=== PATIENT | male | born 1995 | race Caucasian/White ===

== ENCOUNTER 2018-09-04 19:51 | Inpatient (IN) | payer OTHER ==
[~2018-09-04] VITALS: Ht 182.9 cm; Wt 75.5 kg
[2018-09-04] MEDS ORDERED: IBUP200C25 PO (20:09)
[2018-09-04 20:51] LABS: HEMATOCRIT 41.6 % (42.0-52.0); HEMOGLOBIN 14.5 g/dl (13.5-17.5); MEAN CORPUSCULAR HEMOGLOBIN 31.2 pg (27.0-33.0); MEAN CORPUSCULAR HGB CONC 34.9 g/dl (32.0-36.5); MEAN CORPUSCULAR VOLUME 89.5 fl (80.0-96.0); PLATELET COUNT, AUTOMATED 209 10^3/uL (150-450); RED BLOOD COUNT 4.65 10^6/uL (4.30-6.10); WHITE BLOOD COUNT 6.7 10^3/uL (4.0-10.0)
[2018-09-04 21:16] LABS: ACETAMINOPHEN LEVEL < 2.0 UG/ML (10.0-30.0); ALBUMIN 3.9 GM/DL (3.2-5.2); ALT/SGPT 13 U/L (12-78); BILIRUBIN,DIRECT < 0.1 MG/DL (0.0-0.2); BILIRUBIN,TOTAL 0.2 MG/DL (0.2-1.0); BLOOD UREA NITROGEN 12 MG/DL (7-18); CALCIUM LEVEL 8.3 MG/DL (8.5-10.1); CARBON DIOXIDE LEVEL 30 MEQ/L (21-32); CHLORIDE LEVEL 107 MEQ/L (98-107); ETHYL ALCOHOL (ETHANOL) < 0.003 % (0.000-0.010); GLUCOSE, FASTING 85 MG/DL (70-100); POTASSIUM SERUM 4.1 MEQ/L (3.5-5.1); SALICYLATE LEVEL < 1.7 MG/DL (5.0-30.0); SODIUM LEVEL 143 MEQ/L (136-145); TOTAL PROTEIN 6.9 GM/DL (6.4-8.2)
[2018-09-04 21:45] LABS: AMPHETAMINES LEVEL URINE NEGATIVE (NEGATIVE); BARBITURATES URINE NEGATIVE (NEGATIVE); BENZODIAZEPINES URINE NEGATIVE (NEGATIVE); CANNABINOIDS URINE POSITIVE (NEGATIVE); COCAINE METABOLITE URINE NEGATIVE (NEGATIVE); METHADONE URINE NEGATIVE (NEGATIVE); OPIATES URINE NEGATIVE (NEGATIVE); PHENCYCLIDINE URINE NEGATIVE (NEGATIVE)
[2018-09-04] MEDS ORDERED: LORazepam 2 MG TAB PO PRN (22:15)
[2018-09-04] MEDS ORDERED: MOM 30ML SUSPENSION UDC PO PRN (22:15)
[2018-09-04] MEDS ORDERED: MAALOX 30 ML SUSP *UDC PO PRN (22:15)
[2018-09-04] MEDS: THIAMINE 100 MG TAB PO SCH (22:20)
[2018-09-04] MEDS ORDERED: IBUPOTC PO (22:58)
[2018-09-05 01:40] VITALS: BP 124/77
[2018-09-05] MEDS ORDERED: FOLIC ACID 1 MG TAB PO SCH (09:00)
[2018-09-05] MEDS: MULTIVITAMINS/MINERALS THERAP 1 TAB PO SCH (09:59)
[2018-09-05] MEDS: THIAMINE 100 MG TAB PO SCH (09:59)
--- NOTE | 2018-09-05 10:20 | HPEPDOC ---
[facility] Medical History & Physical Date of Admission Sep 05, 2018 History and Physical PCP: EVAN Mcdonald ATTENDING: Dr. Genaro Nick HPI: 22 yo M admitted to [facility] for unspecified depressive disorder, being medically examined today. No acute medical complaints today. Denies any fevers, chills, weakness, fatigue, GOMEZ, CP, SOB, cough, palpitations, abdominal pain, N/V/D or changes in bowel or bladder habits. PMHx: Anxiety Depression History of substance use History of SI/SA. Patient states he attempted hanging March 2018. Patient did not report or seek medical treatment. Occasional headache PSHX: Abdominal surgery at 2 weeks old SOCHX: [facility] [place] Marital Status: Single Kids: None Employment: Active duty Tobacco use: Denies ETOH: Reported drinking daily prior to listing in the [employer]. Illicit Drugs: History of marijuana with daily use prior to enlisting in the left [employer], states he has not used since he's been in the [employer]. IV Drug Use: Denies Tattoos done unprofessionally: Denies FAMHX: Mother: Alive, well Father: Alive, Crohn's disease Siblings: Half-brother and half-sister Alive, well Children: None Unexpected deaths due to medical reasons: None. ROS: As noted in HPI, otherwise 11pt ROS of systems reviewed and unremarkable. PE: GEN: 22 yo M, appears stated age. Well-nourished, well developed. No acute distress. Alert and oriented x 3. Pleasant, interactive. HEENT: Normocephalic, atraumatic. Pupils are equal, round, and reactive to light. Extraocular movements are intact. No nystagmus appreciated. Sclera are nonicteric. Conjunctiva without injection. Nose midline. Nasal turbinates without bogginess. EACs both patent BL. TMs both visualized and dubois with good cone of light, no bulging or erythema. No facial asymmetry. Moist mucous membranes. Dentition fair. Pharynx pink and moist, no cobblestoning. Neck supple, trachea midline. No lymphadenopathy or thyromegaly appreciated. CHEST: Regular rate and rhythm, +S1, +S2 LUNGS: Clear to auscultation bilaterally. No wheezes, rales, or rhonchi. Breathing appears symmetric and easy. Patient is speaking in full sentences. No accessory muscle use. ABD: Round, soft, non-tender, non-distended. +Bowel sounds throughout. No rebound or guarding. No costovertebral angle tenderness. EXT: Pulses 2+ bilaterally dorsalis pedis and radial. No lower extremity edema appreciated. SKIN: Doyle, dry, warm. Capillary refill <2sec. No rashes. NEURO: Alert and oriented x 3. Cranial nerves III-XII are intact. No focal deficits appreciated. EKG: Pending A&P: 22 yo M admitted to [facility] for unspecified depressive disorder 1. Psych. Plan per Psychiatry. Obtain baseline EKG to assure the safety of psychiatric medications as they can prolong the QT interval. 2. Follow up with PCP on discharge. 5. History of Substance use. Management as per psychiatry. 6. Staff member Ed present throughout exam. Vital Signs Vital Signs Date Time Temp Pulse Resp B/P (MAP) Pulse Ox O2 Delivery O2 Flow Rate FiO2 09/05/18 01:40 52 124/77 09/05/18 01:40 97.3 16 97 Room Air Laboratory Data Labs 24H Laboratory Tests 2 09/04/18 20:34: Nucleated Red Blood Cells % (auto) 0.0, Anion Gap 6L, Calcium Level 8.3L, Aspartate Amino Transf (AST/SGOT) 13, Alanine Aminotransferase (ALT/SGPT) 13, Alkaline Phosphatase 38L, Total Bilirubin 0.2, Direct Bilirubin < 0.1, Total Protein 6.9, Albumin 3.9, Albumin/Globulin Ratio 1.30, Thyroid Stimulating Hormone (TSH) 2.970, Salicylates Level < 1.7L, Acetaminophen Level < 2.0L, Ethyl Alcohol Level < 0.003 09/04/18 21:13: Urine Amphetamines Screen NEGATIVE, Urine Benzodiazepines Screen NEGATIVE, Urine Opiates Screen NEGATIVE, Urine Methadone Screen NEGATIVE, Urine Barbiturates Screen NEGATIVE, Urine Phencyclidine Screen NEGATIVE, Urine Cocaine Metabolite Screen NEGATIVE, Urine Cannabinoids Screen POSITIVEH CBC/BMP Laboratory Tests 09/04/18 20:34 Red Blood Count 4.65, Mean Corpuscular Volume 89.5, Mean Corpuscular Hemoglobin 31.2, Mean Corpuscular Hemoglobin Concent 34.9, Red Cell Distribution Width 11.9 Home Medications Scheduled PRN Ibuprofen (Ibuprofen) 200 Mg Tab, 600 MG PO Q6H PRN for HEADACHE OR PAIN Allergies Coded Allergies: No Known Allergies (Unverified , 09/04/18) Nathalia Gutierrez Sep 05, 2018 10:20
[2018-09-05 11:17] VITALS: BP 144/75
--- NOTE | 2018-09-05 11:54 | MHHPEPDOC ---
General Date Of Admission: Sep 04, 2018 Legal Status: 9.39 Chief Complaint "suicidal ideation" History of Present Illness HISTORY OF THE PRESENT ILLNESS: Patient is a 22 -year-old , male, who, as per ED report:PT is AD a little over one year. He enlisted to find a purpose in life and currently works on [employer] as that was the only mechanical[employer] job available. PT descibes hx of depression going back to grade school when he remembers having a sticky note in his locker "I will at 14" and a teacher found it. That was the beginning of his engagement with therapists and he believes he may have been dx with ADHD but his mother was against him being medicated. PT state that he began to have SI while in [employer] around March. He attempted to hang himself by trying a shoestring around his neck and then tying it to a frame wirer. He states he knew it wouldn't work "I was in so much emotional pain I didn't think it wouln't work I just didn't care". He had a visit at his home in [place] over the weekend and while driving back he envisioned himself driving into the river or shooting himself with a crossbow. 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 He admitted to his command that he smoked pot and drank alcohol while at home but he does ot know what the consequence will be. 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 PT cannot CFS and is open to being admitted" Psychiatric Review of Systems Depression (2 or more weeks): depressed mood, anhedonia, insomnia/hypersomnia, feelings of excess/guilt, feelings of worthlesness, decreased energy, appetite changes, psychomotor changes, suicidal thoughts Tarah (4 or more days of): denies Psychosis: denies PTSD: denies Anxiety: gen/non-specific anxiety Anxiety/ 6 months or more of: restlessness, keyed up, easily fatigued, muscle tension, sleep disturbance Past Psychiatric History Previous Psychiatric Diagnosis: Denies Previous Psychiatric Admissions: Denies Suicide Attempts: Yes. In [employer]) in March. He tried to hang himself but the rope snapped Psychiatric Follow-up: Denies Psychiatric medications: Denies. Past Medical History Head Injury: No Seizures: No Hospitalizations: No Surgeries: Yes (He had surgery when he was 2 weeks old, he says, because he was not digesting his food, he was throwing it up) Family Medical/Psychiatric HX Medical Problems Father has Crohn's disease Psychiatric Disorders: Yes (Maternal uncle suffers depression) Addiction: Yes (MaTERNAL UNCLE IS AN ALCOHOLIC) Suicide Attemps/Completions: No Addiction History other (IN THE PAST HE USED MARIJUANA) Social History Childhood: He says that he was always grounded by his stepfather because he got low grades in school. He mentioned his mother had taken him for an evaluation but she didn't want him to be on Adderall. He says he has one half brother and one half sister b ut he doesn't talk to his sister because she is his father's daughter and he doesn't talk to his father since his father calls him only when he needs something. He says his parents, who were never split around the time he was born. 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 Employment: Active duty soldier Social Support: His mother Legal: . Marital: Has no children, singel, is in a relationship Mental Status Examination General Appearance: disheveled, hospital scubs/clothing Build: average Demeanor: average Eye Contact: average Activity: average Behavior: cooperative, resistant Speech: clear, normal volume, reg/rate,rhythm,volume, non-spontaneous Mood: depressed, irritable (Just at the beginning of the interview and he was not disrespectful) Affect: constricted, flat, congruent Thought Process: logical/linear, depressed Thought Content (Delusions): none reported Thought Content (Other): preoccupied, guilty Thought Content (Aggressive): none reported Perception (Hallucinations): none reported Perception (Other): none reported Cognition (Impairment of): none reported Cognition(Intelligence Est.): average Oriented: Awake, Alert, Oriented times three Insight: poor Judgment: Poor Psychosis: Denies Diagnoses 1. Persistent Depressive Disorder 2. Major Depressive Disorder Assessment Patient was initially guarded and seems to be frustrated and resistant although he was polite and he answered questions. Later on, he was able to relax, but it seemed that he didn't want to contribute with more information. He is depressed and seems to be frustrated. He will be started on Zoloft 50 mgs. Initial Treatment Plan 1. Patient was admitted on a [9.39] status. 2. Complete history was obtained. 3. With patients permission, family will be contacted and database will be expanded. 4. Patients medication regimen will be reviewed and changed accordingly. 5. Patient will be provided with protected environment. 6. Patient will be treated with individual, group, and milieu therapies. 7. Patient will receive supportive psych-education. 8. Discharge planning will commence immediately. 9. Outpatient follow-up treatment will be strongly recommended. 10. The initial treatment plan will focus initially on: * Depression. * Risk for suicide. * Substance abuse. ESTIMATED LENGTH OF STAY: 5-7 DAYS. TIME SPENT COUNSELING AND COORDINATING INITIAL CARE: 60 minutes. Vital Signs Vital Signs Date Time Temp Pulse Resp B/P (MAP) Pulse Ox O2 Delivery O2 Flow Rate FiO2 09/05/18 01:40 52 124/77 09/05/18 01:40 97.3 16 97 Room Air Laboratory Data 24H Labs Laboratory Tests 2 09/04/18 20:34: Nucleated Red Blood Cells % (auto) 0.0, Anion Gap 6L, Calcium Level 8.3L, Aspartate Amino Transf (AST/SGOT) 13, Alanine Aminotransferase (ALT/SGPT) 13, Alkaline Phosphatase 38L, Total Bilirubin 0.2, Direct Bilirubin < 0.1, Total Protein 6.9, Albumin 3.9, Albumin/Globulin Ratio 1.30, Thyroid Stimulating Hormone (TSH) 2.970, Salicylates Level < 1.7L, Acetaminophen Level < 2.0L, Ethyl Alcohol Level < 0.003 09/04/18 21:13: Urine Amphetamines Screen NEGATIVE, Urine Benzodiazepines Screen NEGATIVE, Urine Opiates Screen NEGATIVE, Urine Methadone Screen NEGATIVE, Urine Barbiturates Screen NEGATIVE, Urine Phencyclidine Screen NEGATIVE, Urine Cocaine Metabolite Screen NEGATIVE, Urine Cannabinoids Screen POSITIVEH CBC/BMP Laboratory Tests 09/04/18 20:34 Red Blood Count 4.65, Mean Corpuscular Volume 89.5, Mean Corpuscular Hemoglobin 31.2, Mean Corpuscular Hemoglobin Concent 34.9, Red Cell Distribution Width 11.9 Medications Scheduled PRN Ibuprofen (Ibuprofen) 200 Mg Tab, 600 MG PO Q6H PRN for HEADACHE OR PAIN, (Reported) Allergies Coded Allergies: No Known Allergies (Unverified , 09/04/18) OLGA MORGAN MD Sep 05, 2018 11:18
[2018-09-05] MEDS: SERTRALINE HCL 50 MG TAB PO SCH (12:53)
[2018-09-05 18:00] VITALS: BP 136/80
[2018-09-05 18:20] VITALS: BP 136/80
[2018-09-06 06:38] VITALS: BP 123/69
[2018-09-06] MEDS: SERTRALINE HCL 50 MG TAB PO SCH (09:24)
[2018-09-06] MEDS: MULTIVITAMINS/MINERALS THERAP 1 TAB PO SCH (09:24)
[2018-09-06] MEDS: ACETAMINOPHEN TAB 650MG DOSE (2X325MG) PO PRN ×2 (09:25→18:30)
--- NOTE | 2018-09-06 16:29 | MHIPNPDOC ---
[facility] Progress Note Progress Note DATE OF SERVICE: 09/06/18 HISTORY: Patient is a 22 -year-old , male, who, as per ED report:PT is AD a little over one year. He enlisted to find a purpose in life and currently works on [employer] as that was the only [employer] job available. PT descibes hx of depression going back to grade school when he remembers having a sticky note in his locker "I will at 14" and a teacher found it. That was the beginning of his engagement with therapists and he believes he may have been dx with ADHD but his mother was against him being medicated. PT state that he began to have SI while in [employer] around March. He attempted to hang himself by trying a shoestring around his neck and then tying it to a wire loop machine operator. He states he knew it wouldn't work "I was in so much emotional pain I didn't think it wouln't work I just didn't care". He had a visit at his home in [place] over the weekend and while driving back he envisioned himself driving into the river or shooting himself with a crossbow. 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 He admitted to his command that he smoked pot and drank alcohol while at home but he does ot know what the consequence will be. 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 PT cannot CFS and is open to being admitted" VITAL SIGNS: See below. NEW TEST RESULTS: See below CURRENT MEDICATIONS: See below. MENTAL STATUS EXAMINATION: General Appearance: disheveled, hospital scrubs/clothing Build: average Demeanor: average Eye Contact: average Activity: average Behavior: cooperative, pleasant Speech: clear, normal volume, reg/rate,rhythm,volume, non-spontaneous Mood: "I've been doing well today. I slept a lot" Affect: Full, reactive, congruent with mood, appropriate Thought Process: logical/linear, intact Thought Content (Delusions): none reported Thought Content (Other): goal directed, hopeful, positive thoughts Thought Content (Aggressive): none reported Perception (Hallucinations): none reported Perception (Other): none reported Cognition (Impairment of): none reported Cognition(Intelligence Est.): average Oriented: Awake, Alert, Oriented times three Insight: improved Judgment: improved Psychosis: Denies Diagnoses 1. Persistent Depressive Disorder 2. Major Depressive Disorder ASSESSMENT: patient is feeling better, he is rested, he says he saw his first Suresh yesterday and his conversation was good with him. He says that groups have been helping him. Reports his chain of command and peers have been very supportive. He says he has been thinking that it would be good for him to go back to [facility] with his relatives. MANAGEMENT PLAN: considering discharge if he keeps improving TIME SPENT: 20 minutes. Vital Signs Vital Signs Date Time Temp Pulse Resp B/P (MAP) Pulse Ox O2 Delivery O2 Flow Rate FiO2 09/06/18 06:38 97.0 14 72 123/69 (87) 09/05/18 01:40 97 Room Air Current Medications Current Medications Acetaminophen (Tylenol Tab) 650 mg Q6HP PRN PO HEADACHE or DISCOMFORT Last administered on 09/06/18at 09:25; Start 09/04/18 at 22:15 Al Hydrox/Mg Hydrox/Simethicone (Mylanta) 30 ml Q4HP PRN PO HEARTBURN/INDIGESTION; Start 09/04/18 at 22:15 Folic Acid (Folic Acid) 1 mg DAILY PO Last administered on 09/05/18at 09:59; Start 09/05/18 at 09:00; Stop 09/05/18 at 11:44; Status DC Home Med (Med Rec Complete!) ASDIRECTED XX ; Start 09/04/18 at 23:00; Stop 09/04/18 at 23:01; Status DC Lorazepam (Ativan) 2 mg ASDIRECTED PRN PO SEE PROTOCOL; Start 09/04/18 at 22:15; Status Cancel Magnesium Hydroxide (Milk Of Magnesia) 30 ml DAILYPRN PRN PO CONSTIPATION; Start 09/04/18 at 22:15 Multivitamins (Theragram-M) 1 tab DAILY PO Last administered on 09/06/18at 09:24; Start 09/05/18 at 09:00 Sertraline HCl (Zoloft) 50 mg QAM PO Last administered on 09/06/18at 09:24; Start 09/05/18 at 09:00 Thiamine HCl (Thiamine HCl) 100 mg BID PO Last administered on 09/05/18at 09:59; Start 09/04/18 at 22:08; Stop 09/05/18 at 11:44; Status DC Trazodone HCl (Desyrel) 50 mg QHSP PRN PO INSOMNIA; Start 09/04/18 at 22:15 Allergies Coded Allergies: No Known Allergies (Unverified , 09/04/18) OLGA MORGAN MD Sep 06, 2018 16:20
[2018-09-06 18:00] VITALS: BP 146/86
[2018-09-07 06:46] VITALS: BP 122/58
[2018-09-07] MEDS: SERTRALINE HCL 50 MG TAB PO SCH (09:37)
[2018-09-07] MEDS: MULTIVITAMINS/MINERALS THERAP 1 TAB PO SCH (09:37)
[2018-09-07] MEDS: IBUPROFEN 400 MG TAB PO PRN (17:29)
[2018-09-07 18:36] VITALS: BP 148/83
--- NOTE | 2018-09-07 18:40 | MHIPNPDOC ---
[facility] Progress Note Progress Note DATE OF SERVICE: 09/07/18 HISTORY: Patient is a 22 -year-old , male, who, as per ED report:PT is AD a little over one year. He enlisted to find a purpose in life and currently works on [employer] as that was the only [employer] job available. PT descibes hx of depression going back to grade school when he remembers having a sticky note in his locker "I will at 14" and a teacher found it. That was the beginning of his engagement with therapists and he believes he may have been dx with ADHD but his mother was against him being medicated. PT state that he began to have SI while in [employer] around March. He attempted to hang himself by trying a shoestring around his neck and then tying it to a wire brush maker. He states he knew it wouldn't work "I was in so much emotional pain I didn't think it wouln't work I just didn't care". He had a visit at his home in [place] over the weekend and while driving back he envisioned himself driving into the river or shooting himself with a crossbow. 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 He admitted to his command that he smoked pot and drank alcohol while at home but he does ot know what the consequence will be. 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 PT cannot CFS and is open to being admitted" VITAL SIGNS: See below. NEW TEST RESULTS: See below CURRENT MEDICATIONS: See below. MENTAL STATUS EXAMINATION: General Appearance: disheveled, hospital scrubs/clothing Build: average Demeanor: average Eye Contact: average Activity: average Behavior: cooperative, pleasant Speech: clear, normal volume, reg/rate,rhythm,volume, non-spontaneous Mood: "I''m better" Affect: Full, reactive, congruent with mood, appropriate Thought Process: logical/linear, intact Thought Content (Delusions): none reported Thought Content (Other): goal directed, hopeful, positive thoughts Thought Content (Aggressive): none reported Perception (Hallucinations): none reported Perception (Other): none reported Cognition (Impairment of): none reported Cognition(Intelligence Est.): average Oriented: Awake, Alert, Oriented times three Insight: improved Judgment: improved Psychosis: Denies Diagnoses 1. Persistent Depressive Disorder 2. Major Depressive Disorder ASSESSMENT: The patient is feeling better and he looks better but he has attended group only twice and he has been very sick, therefore, he will spend Tuesday, Tuesday and Tuesday at [facility] so that he can learn some coping skills. Patient is facing several problems within the [employer] and he has to be stable in order to be discharged because once he goes back to he will have to confront those problems. He might be from the [employer]. MANAGEMENT PLAN: considering discharge on Tuesday if he keeps improving Vital Signs Vital Signs Date Time Temp Pulse Resp B/P (MAP) Pulse Ox O2 Delivery O2 Flow Rate FiO2 09/07/18 06:46 98.0 55 14 122/58 (79) Room Air 09/05/18 01:40 97 Current Medications Current Medications Acetaminophen (Tylenol Tab) 650 mg Q6HP PRN PO HEADACHE or DISCOMFORT Last administered on 09/06/18at 18:30; Start 09/04/18 at 22:15 Al Hydrox/Mg Hydrox/Simethicone (Mylanta) 30 ml Q4HP PRN PO HEARTBURN/INDIGESTION; Start 09/04/18 at 22:15 Folic Acid (Folic Acid) 1 mg DAILY PO Last administered on 09/05/18at 09:59; Start 09/05/18 at 09:00; Stop 09/05/18 at 11:44; Status DC Home Med (Med Rec Complete!) ASDIRECTED XX ; Start 09/04/18 at 23:00; Stop 09/04/18 at 23:01; Status DC Ibuprofen (Advil) 400 mg Q6HP PRN PO PAIN Last administered on 09/07/18at 17:29; Start 09/07/18 at 12:30 Lorazepam (Ativan) 2 mg ASDIRECTED PRN PO SEE PROTOCOL; Start 09/04/18 at 22:15; Status Cancel Magnesium Hydroxide (Milk Of Magnesia) 30 ml DAILYPRN PRN PO CONSTIPATION; Start 09/04/18 at 22:15 Multivitamins (Theragram-M) 1 tab DAILY PO Last administered on 09/07/18at 09:37; Start 09/05/18 at 09:00 Sertraline HCl (Zoloft) 50 mg QAM PO Last administered on 09/07/18at 09:37; Start 09/05/18 at 09:00 Thiamine HCl (Thiamine HCl) 100 mg BID PO Last administered on 09/05/18at 09:59; Start 09/04/18 at 22:08; Stop 09/05/18 at 11:44; Status DC Trazodone HCl (Desyrel) 50 mg QHSP PRN PO INSOMNIA; Start 09/04/18 at 22:15 Allergies Coded Allergies: No Known Allergies (Unverified , 09/04/18) OLGA MORGAN MD Sep 07, 2018 18:40
[2018-09-08 07:14] VITALS: BP 134/63
[2018-09-08] MEDS: MULTIVITAMINS/MINERALS THERAP 1 TAB PO SCH (09:37)
[2018-09-08] MEDS: SERTRALINE HCL 50 MG TAB PO SCH (09:37)
[2018-09-08] MEDS: IBUPROFEN 400 MG TAB PO PRN (12:08)
[2018-09-08 18:00] VITALS: BP 137/71
[2018-09-08] MEDS: ACETAMINOPHEN TAB 650MG DOSE (2X325MG) PO PRN (19:12)
[2018-09-08] MEDS: traZODone 50 MG TAB PO PRN (22:53)
[2018-09-09 06:42] VITALS: BP 132/74
[2018-09-09] MEDS: SERTRALINE HCL 50 MG TAB PO SCH (09:13)
[2018-09-09] MEDS: MULTIVITAMINS/MINERALS THERAP 1 TAB PO SCH (09:13)
[2018-09-09] MEDS ORDERED: SERTRALINE HCL 50 MG TAB PO ONE (09:30)
[2018-09-09 18:00] VITALS: BP 110/60
[2018-09-09] MEDS: IBUPROFEN 600 MG TAB PO PRN (19:21)
[2018-09-09] MEDS: traZODone 50 MG TAB PO PRN (22:08)
[2018-09-10 06:49] VITALS: BP 128/76
--- NOTE | 2018-09-10 07:15 | MHIPN ---
DATE: 09/09/2018 VITAL SIGNS: Temperature 97.8, pulse 62, respirations 14, blood pressure 132/74. CURRENT MEDICATIONS: Zoloft 50 mg every morning. Trazodone 50 mg at bedtime as needed. 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 Patient still reports some depressive symptoms which wax and wane. The patient feels home sick. Patient's depression dates back to grade school but has worsened since being in the over the past year. He is tolerating the Zoloft well. He had some diarrhea the first day but not since. He feels comfortable increasing the dosage. He was complaining of some back pain [place] The Motrin has not been very helpful. MENTAL STATUS EXAM: Patient is alert, oriented, and cooperative. Affect appears flat. Mood still appears dysphoric and mildly depressed. There is some anxiety. He is no suicidal. Grooming and hygiene is quite good. No signs of psychosis. Insight and judgment appears good. Cognitive function is intact. DIAGNOSIS: Major depressive disorder. PLAN: Increase Zoloft to 100 mg every morning. Increase Motrin as well.
[2018-09-10] MEDS: MULTIVITAMINS/MINERALS THERAP 1 TAB PO SCH (08:52)
[2018-09-10] MEDS: SERTRALINE HCL 50 MG TAB PO SCH (08:52)
[2018-09-10 18:00] VITALS: BP 145/62
[2018-09-10] MEDS: IBUPROFEN 600 MG TAB PO PRN (23:04)
[2018-09-10] MEDS: traZODone 50 MG TAB PO PRN (23:05)
[2018-09-11 06:54] VITALS: BP 123/68
[2018-09-11] MEDS: MULTIVITAMINS/MINERALS THERAP 1 TAB PO SCH (08:10)
[2018-09-11] MEDS: SERTRALINE HCL 50 MG TAB PO SCH (08:11)
[2018-09-11] MEDS ORDERED: SERT50TA PO (10:37)
[2018-09-11] MEDS ORDERED: TRAZO50TA PO (10:37)
[2018-09-11] MEDS ORDERED: VITMTA PO (10:47)
--- NOTE | 2018-09-24 21:01 | MHIPNPDOC ---
[facility] Progress Note Progress Note DATE OF SERVICE: 09/08/18 HISTORY: Patient is a 22 -year-old , male, who, as per ED report:PT is AD a little over one year. He enlisted to find a purpose in life and currently works on [employer] as that was the only [employer] job available. PT descibes hx of depression going back to grade school when he remembers having a sticky note in his locker "I will at 14" and a teacher found it. That was the beginning of his engagement with therapists and he believes he may have been dx with ADHD but his mother was against him being medicated. PT state that he began to have SI while in [employer] around March. He attempted to hang himself by trying a shoestring around his neck and then tying it to a wire spring relay adjuster. He states he knew it wouldn't work "I was in so much emotional pain I didn't think it wouln't work I just didn't care". He had a visit at his home in [place] over the weekend and while driving back he envisioned himself driving into the river or shooting himself with a crossbow. 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 PT cannot CFS and is open to being admitted" VITAL SIGNS: See below. NEW TEST RESULTS: See below CURRENT MEDICATIONS: See below. MENTAL STATUS EXAMINATION: General Appearance: disheveled, hospital scrubs/clothing Build: average Demeanor: average Eye Contact: average Activity: average Behavior: cooperative, pleasant Speech: clear, normal volume, reg/rate,rhythm,volume, non-spontaneous Mood: "I''m better" Affect: Full, reactive, congruent with mood, appropriate Thought Process: logical/linear, intact Thought Content (Delusions): none reported Thought Content (Other): goal directed, hopeful, positive thoughts Thought Content (Aggressive): none reported Perception (Hallucinations): none reported Perception (Other): none reported Cognition (Impairment of): none reported Cognition(Intelligence Est.): average Oriented: Awake, Alert, Oriented times three Insight: improved Judgment: improved Psychosis: Denies Diagnoses 1. Persistent Depressive Disorder 2. Major Depressive Disorder ASSESSMENT: The patient says he is making plans for the future, going back to [place], getting a job, getting an apartment. He has been talking to different family members. He is not suicidal , he is not homicidal and not psychotic. MANAGEMENT PLAN: considering discharge on Tuesday if he keeps improving Vital Signs Vital Signs Date Time Temp Pulse Resp B/P (MAP) Pulse Ox O2 Delivery O2 Flow Rate FiO2 09/08/18 18:00 100.0 53 16 137/71 (93) 09/08/18 07:14 Room Air 09/05/18 01:40 97 Current Medications Current Medications Acetaminophen (Tylenol Tab) 650 mg Q6HP PRN PO HEADACHE or DISCOMFORT Last administered on 09/08/18at 19:12; Start 09/04/18 at 22:15 Al Hydrox/Mg Hydrox/Simethicone (Mylanta) 30 ml Q4HP PRN PO HEARTBURN/INDIGESTION; Start 09/04/18 at 22:15 Folic Acid (Folic Acid) 1 mg DAILY PO Last administered on 09/05/18at 09:59; Start 09/05/18 at 09:00; Stop 09/05/18 at 11:44; Status DC Home Med (Med Rec Complete!) ASDIRECTED XX ; Start 09/04/18 at 23:00; Stop 09/04/18 at 23:01; Status DC Ibuprofen (Advil) 400 mg Q6HP PRN PO PAIN Last administered on 09/08/18at 12:08; Start 09/07/18 at 12:30 Lorazepam (Ativan) 2 mg ASDIRECTED PRN PO SEE PROTOCOL; Start 09/04/18 at 22:15; Status Cancel Magnesium Hydroxide (Milk Of Magnesia) 30 ml DAILYPRN PRN PO CONSTIPATION; Start 09/04/18 at 22:15 Multivitamins (Theragram-M) 1 tab DAILY PO Last administered on 09/08/18at 09:37; Start 09/05/18 at 09:00 Sertraline HCl (Zoloft) 50 mg QAM PO Last administered on 09/08/18at 09:37; Start 09/05/18 at 09:00 Thiamine HCl (Thiamine HCl) 100 mg BID PO Last administered on 09/05/18at 09:59; Start 09/04/18 at 22:08; Stop 09/05/18 at 11:44; Status DC Trazodone HCl (Desyrel) 50 mg QHSP PRN PO INSOMNIA; Start 09/04/18 at 22:15 Allergies Coded Allergies: No Known Allergies (Unverified , 09/04/18) OLGA MORGAN MD Sep 08, 2018 19:47
--- NOTE | 2018-09-24 21:14 | MHDSPDOC ---
[facility] Discharge Summary Discharge Summary DATE OF ADMISSION: Sep 04, 2018 at 22:02 DATE OF DISCHARGE: Sep 11, 2018 at 11:55 DISCHARGE DIAGNOSES: 1. Major Depressive disorder 2. Alcohol use disorder 3. Marihuana use disorder REASON FOR ADMISSION: Patient is a 22 -year-old , male, who, as per ED report:PT is AD a little over one year. He enlisted to find a purpose in life and currently works on [employer] as that was the only [employer] job available. PT descibes hx of depression going back to grade school when he remembers having a sticky note in his locker "I will at 14" and a teacher found it. That was the beginning of his engagement with therapists and he believes he may have been dx with ADHD but his mother was against him being medicated. PT state that he began to have SI while in [employer] around March. He attempted to hang himself by trying a shoestring around his neck and then tying it to a numberer and wirer. He states he knew it wouldn't work "I was in so much emotional pain I didn't think it wouln't work I just didn't care". He had a visit at his home in [place] over the weekend and while driving back he envisioned himself driving into the river or shooting himself with a crossbow. 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 PT cannot CFS and is open to being admitted" CONSULTANTS INVOLVED: None TREATMENT AND PROGRESS ON THE UNIT : The patient was cooperative and he attended groups. He accepted to take Sertraline because,he said, he wanted to feel better. He knew he would be from the [employer] but he never mentioned it, instead he made it look as if he would separate, that it could be his decision and frequently said that he was thinking about going back to [place] to start a different life, with the support of his relatives. He ws observed to be sad, but not suicidal, he was not homicidal and not psychotic. He had a good response to medications and denied medications side effects. HOSPITAL COURSE: As above DISCHARGE ASSESSMENT: Patient was not suicidal, not homicidal and not psychotic at the time of his discharge. MENTAL STATUS EXAMINATION ON DISCHARGE: General Appearance: disheveled, hospital scrubs/clothing Build: average Demeanor: average Eye Contact: average Activity: average Behavior: cooperative, pleasant Speech: clear, normal volume, reg/rate,rhythm,volume, non-spontaneous Mood: "I''m better" Affect: Full, reactive, congruent with mood, appropriate Thought Process: logical/linear, intact Thought Content (Delusions): none reported Thought Content (Other): goal directed, hopeful, positive thoughts Thought Content (Aggressive): none reported Perception (Hallucinations): none reported Perception (Other): none reported Cognition (Impairment of): none reported Cognition(Intelligence Est.): average Oriented: Awake, Alert, Oriented times three Insight: improved Judgment: improved Psychosis: Denies MEDICATIONS ON DISCHARGE: Scheduled Multivitamins *[facility] STOCKED* (Thera M Plus *[facility] STOCKED*) 1 Tab Tab, 1 TAB PO DAILY for nutritional supplement, #7 Sertraline Hcl (Sertraline HCl) 50 Mg Tab, 100 MG PO QAM for depression, #14 Scheduled PRN Ibuprofen (Ibuprofen) 200 Mg Tab, 600 MG PO Q6H PRN for HEADACHE OR PAIN, (Reported) Trazodone HCl (Trazodone HCl) 50 Mg Tab, 50 MG PO QHSP PRN for INSOMNIA, #7 PLAN/FOLLOWUP ARRANGEMENTS: Follow Up Care Education Label * Medical * Medical Follow Up [facility] * Established With This Provider Yes * Therapist LT FONTENOT * Date Sep 14, 2018 * Time 09:00 * Follow Up Care Education Label * Smoking Cessation * Mental Health [facility] * Smoking Cessation [facility] Smoking Cessation * Additional information see attached form Follow Up Care Education Label * Mental Health Appt 1 * Mental Health 3rd Embedded * Established With This Provider Yes * Additional information Pt will receive appts once he gets to his walk in appt today Follow Up Care Education Label * Chemical Dependency Appt1 * Chemical Dependency [facility] * Established With This Provider No * Additional information Pt will report as walk in to [facility] The amount of time spent in the coordination of care for this patient was approximately 30 minutes. Medications Scheduled Multivitamins *[facility] STOCKED* (Thera M Plus *[facility] STOCKED*) 1 Tab Tab, 1 TAB PO DAILY for nutritional supplement, #7 Sertraline Hcl (Sertraline HCl) 50 Mg Tab, 100 MG PO QAM for depression, #14 Scheduled PRN Ibuprofen (Ibuprofen) 200 Mg Tab, 600 MG PO Q6H PRN for HEADACHE OR PAIN, (Reported) Trazodone HCl (Trazodone HCl) 50 Mg Tab, 50 MG PO QHSP PRN for INSOMNIA, #7 Allergies Coded Allergies: No Known Allergies (Unverified , 09/04/18) OLGA MORGAN MD Sep 24, 2018 21:03
== END 2018-09-11 11:55 | disposition home or self-care (01) | DRG 881 ==
LOC: M ED 19:51 → M ED INP 22:02 → M PSY 09-05 01:35
PROVIDERS: ADMIT Psychiatry & Neurology Psychiatry; ATTEND Psychiatry & Neurology Psychiatry
DX: F32.9 Major depressive disorder, single episode, unspecified (principal); M54.9 Dorsalgia, unspecified; F10.10 Alcohol abuse, uncomplicated; F12.10 Cannabis abuse, uncomplicated; Z81.1 Family history of alcohol abuse and dependence; Z91.5 Personal history of self-harm

== ENCOUNTER 2018-10-05 00:39 | Emergency (ER) | payer OTHER ==
[~2018-10-05] VITALS: Ht 182.9 cm; Wt 75.0 kg
[~2018-10-05 00:39] MED LIST: IBUP200C25 PO; IBUPOTC PO; SERT50TA PO; TRAZO50TA PO; VITMTA PO
[2018-10-05 00:40] VITALS: BP 169/82
[2018-10-05] MEDS ORDERED: FLUORESCEIN OPHTH 1 MG STRIP OU ONE (01:00)
[2018-10-05] MEDS ORDERED: TETRACAINE 0.5% OPHTH SOLN 4ML OU ONE (01:00)
[2018-10-05] MEDS ORDERED: CIPROFLOXACIN 0.3% OPHTH SOLN 2.5ML OU ONE (01:15)
[2018-10-05] MEDS ORDERED: CIPR0.3S OP (01:19)
== END 2018-10-05 01:28 | disposition home or self-care (01) ==
LOC: M ED 00:39
DX: S05.02XA Injury of conjunctiva and corneal abrasion without foreign body, left eye, initial encounter (principal); X58.XXXA Exposure to other specified factors, initial encounter; Y92.9 Unspecified place or not applicable; Y93.9 Activity, unspecified; Y99.9 Unspecified external cause status; F41.9 Anxiety disorder, unspecified; F32.9 Major depressive disorder, single episode, unspecified; Z72.0 Tobacco use

== ENCOUNTER 2018-12-11 14:29 | Emergency (ER) | payer OTHER ==
[~2018-12-11] VITALS: Ht 182.9 cm; Wt 79.5 kg
[~2018-12-11 14:29] MED LIST changes: +CIPR0.3S OP
[2018-12-11] MEDS ORDERED: BUPR150T3 (16:07)
[2018-12-11 18:30] VITALS: BP 143/92
--- NOTE | 2018-12-11 19:15 | REP ---
RIGHT HAND, FOUR VIEWS: HISTORY: Thumb pain. There is no acute fracture or dislocation. The joint spaces are normal in appearance. IMPRESSION:There is no acute fracture or dislocation. Electronically Signed by Burton Vizcaino MD 12/11/2018 07:21 P
== END 2018-12-11 18:44 | disposition home or self-care (01) ==
LOC: M ED 14:29
DX: S60.011A Contusion of right thumb without damage to nail, initial encounter (principal); W19.XXXA Unspecified fall, initial encounter; Y92.59 Other trade areas as the place of occurrence of the external cause; Y99.0 Civilian activity done for income or pay; F33.9 Major depressive disorder, recurrent, unspecified; F41.9 Anxiety disorder, unspecified; Z79.899 Other long term (current) drug therapy

== ENCOUNTER 2019-08-06 17:13 | Emergency (ER) | payer OTHER ==
[~2019-08-06] VITALS: Ht 182.9 cm; Wt 86.0 kg
[2019-08-06 17:13] VITALS: BP 144/83
[~2019-08-06 17:13] MED LIST changes: +BUPR150T3; +SERT-141 PO; -SERT50TA PO; +TRAZ1TAB10 PO; -TRAZO50TA PO
--- NOTE | 2019-08-06 17:49 | REP ---
Four views right hand: 08/06/2019. Indication: Right hand trauma. Comparison: 12/11/2018. Findings: There is a moderately displaced and angulated fracture involving the distal aspect of the fifth metacarpal without intra-articular extension. No additional fractures are present. No erosive lesions of the visualized bones are present. Impression: Distal right fifth metacarpal fracture. Electronically Signed by Michael Shrestha DO 08/06/2019 05:40 P
== END 2019-08-06 18:01 | disposition home or self-care (01) ==
LOC: M ED 17:13
DX: S62.326A Displaced fracture of shaft of fifth metacarpal bone, right hand, initial encounter for closed fracture (principal); W18.09XA Striking against other object with subsequent fall, initial encounter; Y92.9 Unspecified place or not applicable; Y99.8 Other external cause status